=== PATIENT | female | born 1990 | race Caucasian/White ===

== ENCOUNTER 2016-08-16 17:05 | Emergency (ER) | payer OTHER ==
[~2016-08-16] VITALS: Ht 154.9 cm; Wt 73.2 kg
[~2016-08-16 17:05] MED LIST: ADVAIR 250/501 DISK IH; ADVAIR 500/501 DISK IH; ADVIL200 MG PO; ALBUTEROL SULF8.5 GM IH; AMOXICILLIN875 MG PO; AZITHROMYCIN250 MG PO; BUPRENORPHIN-N1 EACH SL; COMBIVENT RESPIM4 GM IH; COUMADIN10 MG PO; DOXYCYCLINE HY100 MG PO; ENOXAPARIN80 MG/0.8 SC; ESCITALOPRAM OX10 MG PO; FIORICET,ESG1 TABLET PO; FLEXERIL10 MG PO; GABAPENTIN300 MG PO; LEVAQUIN750 MG PO; LEVOFLOXACIN750 MG PO; NAPROSYN500 MG PO; NASONEX17 GM BOTH NARES; NOHOMEMEDS; PANTOPRAZOLE SO40 MG PO; PREDNISONE10 MG PO; PREDNISONE20 MG PO; PROAIR HFA8.5 GM IH; PROMETHAZINE HC25 M1 PO; SERTRALINE HCL100 MG PO; TYLENOL EXTRA500 MG PO; ULTRACET1 TABLET PO; VALIUM2 MG PO; WARFARIN SODIUM4 MG PO; ZITHROMAX Z-PA250 MG PO
[2016-08-16 17:54] LABS: HEMATOCRIT 41.2 % (36.0-46.0); MCH 25.1 PG (29.0-34.0); MCHC 33.5 G/DL (30.0-36.0); MEAN PLAT.VOLUME 10.2 uM^3 (9.5-12.4); PLATELET COUNT 576 K/uL (156-360); RBC DIS.WIDTH-CV 17.8 % (11.8-14.6); RED BLOOD COUNT 5.49 M/uL (3.80-5.20); WHITE BLOOD COUNT 10.9 K/uL (4.1-10.2)
[2016-08-16 17:56] LABS: CHLORIDE 109 mEq/L (99-109); POTASSIUM 3.8 mEq/L (3.7-5.4); SODIUM 142 mEq/L (136-147)
[2016-08-16 17:58] LABS: GLUCOSE 123 mg/dL (70-99)
[2016-08-16 17:59] LABS: ANION GAP 15 MEQ/L (2-14)
[2016-08-16 18:02] LABS: GFR ESTIMATE (CALCULATED) > 59 mL/min/; UREA NITROGEN (BUN) 9 mg/dL (9-23)
[2016-08-16 18:10] LABS: TROP-I INTERPRETATION NEGATIVE; TROPONIN-I < 0.01 ng/mL (0.0-0.30)
[2016-08-16 19:16] LABS: PTT 41.8 (25-32)
[2016-08-16 19:19] LABS: INTER. NORMALIZED RATIO 2.9; PROTHROMBIN TIME 30.8 (9.2-11.2)
[2016-08-16 20:02] LABS: BILIRUBIN NEGATIVE; BLOOD NEGATIVE; COLOR YELLOW ((YELLOW)); GLUCOSE (STRIP) NEGATIVE; KETONES NEGATIVE; LEUKOCYTES NEGATIVE; NITRITE NEGATIVE; PROTEIN (STRIP) NEGATIVE; UROBILINOGEN 0.2 MG/DL (0.2-1.0)
[2016-08-16 20:06] LABS: ADD MIUA? NO; UCUL ADDED? NO
[2016-08-16] MEDS ORDERED: TRAMADOL HCL50 MG PO (20:25)
[2016-08-16 21:00] VITALS: BP 109/63
== END 2016-08-16 21:00 | disposition home or self-care (01) ==
LOC: EME 17:05
PROVIDERS: Emergency Medicine
DX: R07.9 Chest pain, unspecified (principal); R73.9 Hyperglycemia, unspecified; D72.829 Elevated white blood cell count, unspecified; J45.909 Unspecified asthma, uncomplicated; F17.200 Nicotine dependence, unspecified, uncomplicated; Z79.01 Long term (current) use of anticoagulants; Z88.6 Allergy status to analgesic agent
CPT/HCPCS: 71020; 80048; 81003; 84484; 85027; 85610; 85730; 87086; 93005; 99281; 99284

== ENCOUNTER 2017-03-15 05:51 | Emergency (ER) | payer OTHER ==
[~2017-03-15] VITALS: Ht 154.9 cm; Wt 76.2 kg
[~2017-03-15 05:51] MED LIST changes: +TRAMADOL HCL50 MG PO
[2017-03-15 08:00] LABS: INTER. NORMALIZED RATIO 1.2; PROTHROMBIN TIME 12.8 SEC (10.2-12.9)
[2017-03-15 08:04] LABS: EOSINOPHIL (%) 1.4 % (0-5); EOSINOPHIL COUNT 0.2 K/uL (0-0.3); HEMATOCRIT 39.1 % (36.0-46.0); IMMATURE GRANULOCYTE (%) 0.4 % (0.0-0.7); INSTRUMENT ABS NEUTROPHIL CT 9.6 K/uL; LYMPHOCYTE COUNT 1.3 K/uL (1.0-2.8); MCH 23.8 PG (29.0-34.0); MCHC 32.2 G/DL (30.0-36.0); MCV 73.9 FL (83-99); MEAN PLAT.VOLUME 10.1 uM^3 (9.5-12.4); MONOCYTE (%) 1.8 % (3-12); MONOCYTE COUNT 0.2 K/uL (0-0.8); NEUTROPHIL (%) 84.3 % (45-76); NEUTROPHIL COUNT 9.6 K/uL (1.8-6.4); PLATELET COUNT 476 K/uL (156-360); RBC DIS.WIDTH-SD 51.4 % (39-53); RED BLOOD COUNT 5.29 M/uL (3.80-5.20); WHITE BLOOD COUNT 11.4 K/uL (4.1-10.2)
[2017-03-15 08:30] LABS: ANION GAP 9 MEQ/L (2-14); CHLORIDE 106 MEQ/L (99-109); GFR ESTIMATE (CALCULATED) > 59 mL/min/; GLUCOSE 107 mg/dL (70-99); POTASSIUM 4.1 MEQ/L (3.7-5.4); SAMPLE HEMOLYSIS CHECK 0; SAMPLE ICTERIC CHECK 0; SAMPLE LIPEMIA CHECK 0; SODIUM 137 MEQ/L (136-147); UREA NITROGEN (BUN) 10 mg/dL (9-23)
[2017-03-15] MEDS ORDERED: ZITHROMAX Z-PA250 MG PO (12:09)
[2017-03-15] MEDS ORDERED: PREDNISONE50 MG PO (12:09)
[2017-03-15] MEDS ORDERED: PROAIR HFA8.5 GM IH (12:12)
[2017-03-15] MEDS ORDERED: PROVENTIL,2.5 MG/3 M IH (12:12)
[2017-03-15 12:21] VITALS: BP 105/68
== END 2017-03-15 12:26 | disposition home or self-care (01) ==
LOC: EME 05:51
PROVIDERS: Emergency Medicine
DX: J45.901 Unspecified asthma with (acute) exacerbation (principal); J20.9 Acute bronchitis, unspecified
CPT/HCPCS: 71020; 71275; 80048; 85025; 85379; 85610; 94640; 99281; 99284; J7030; J7512